=== PATIENT | male | born 1965 | race Hispanic/Latino ===

== ENCOUNTER 2019-09-29 20:38 | Emergency (ER) | payer OTHER ==
[2019-09-29 22:03] LABS: Basophils # (Auto) 0.1 K/mm3 (0.0-0.1); Basophils % (Auto) 1.5 % (0.0-1.8); Eosinophils % (Auto) 0.7 % (0.0-4.3); Hematocrit 40.8 % (35.5-45.6); Hemoglobin 14.5 gm/dl (11.8-15.2); Lymphocytes # (Auto) 1.3 K/mm3 (1.2-5.4); Lymphocytes % (Auto) 31.3 % (13.4-35.0); Mean Corpuscular HGB Conc 36 % (32-34); Mean Corpuscular Volume 91 fl (84-94); Monocytes # (Auto) 0.5 K/mm3 (0.0-0.8); Monocytes % (Auto) 13.1 % (0.0-7.3); Platelet Count 166 K/mm3 (140-440); Red Blood Count 4.47 M/mm3 (3.65-5.03); Red Cell Distribution Width 14.5 % (13.2-15.2)
[2019-09-29] MEDS ORDERED: LORazepam 1 MG TAB PO ONE (22:18)
[2019-09-29] MEDS ORDERED: SODIUM CHLORIDE 0.9% 1000 ML 1,000 ML IV ONE (22:18)
[2019-09-29 22:20] LABS: BUN/Creatinine Ratio 12; Blood Urea Nitrogen 7 mg/dL (9-20); Calcium 8.7 mg/dL (8.4-10.2); Hemolysis Index 2
--- NOTE | 2019-09-29 22:20 | Emergency Department Report ---
ED Psych HPI - General Chief Complaint: Medical Clearance Stated Complaint: MEDICAL CLEARANCE/DETOX Time Seen by Provider: 09/29/19 22:08 Source: patient Mode of arrival: Ambulatory - History of Present Illness Initial Comments: Patient is a 54-year-old male who is presenting with need for medical clearance for detox center. Patient has been accompanied here by a staff from [facility] with need for medical clearance. Patient states his last drink was last night and he had 2 bottles of wine. Patient drinks between 3 or 4 bottles of wine daily. Patient states that he's never had withdrawal seizures. Patient does have a tremor at baseline and he states is present when he's drinks and also when he is not drinking. Patient denies nausea vomiting diarrhea h eadache cough cold congestion fevers or chills at this time. - Related Data Previous Rx's Medication Instructions Recorded Last Taken Type LORazepam [Ativan] 1 mg PO TID PRN #20 tablet 01/27/17 Unknown Rx Allergies Allergy/AdvReac Type Severity Reaction Status Date / Time No Known Allergies Allergy Verified 01/26/17 22:13 ED Review of Systems ROS: Stated complaint: MEDICAL CLEARANCE/DETOX Other details as noted in HPI Comment: All other systems reviewed and negative ED Past Medical Hx - Past Medical History Previous Medical History?: Yes Hx Liver Disease: Yes Hx Seizures: Yes Additional medical history: etoh - Surgical History Past Surgical History?: No - Social History Smoking Status: Never Smoker Substance Use Type: None - Medications Home Medications: Home Medications Medication Instructions Recorded Confirmed Last Taken Type LORazepam [Ativan] 1 mg PO TID PRN #20 tablet 01/27/17 Unknown Rx ED Physical Exam - General Limitations: No Limitations General appearance: alert, in no apparent distress, appears intoxicated - Head Head exam: Present: atraumatic, normocephalic - Eye Eye exam: Present: normal appearance, PERRL, EOMI - ENT ENT exam: Present: mucous membranes moist - Neck Neck exam: Present: normal inspection - Respiratory Respiratory exam: Present: normal lung sounds bilaterally. Absent: respiratory distress, wheezes, rales, rhonchi, stridor, chest wall tenderness - Cardiovascular Cardiovascular Exam: Present: normal rhythm, tachycardia. Absent: systolic murmur, diastolic murmur, rubs, gallop - GI/Abdominal GI/Abdominal exam: Present: soft, normal bowel sounds. Absent: distended, tenderness, guarding, rebound - Rectal Rectal exam: Present: deferred - Extremities Exam Extremities exam: Present: normal inspection - Back Exam Back exam: Present: normal inspection - Neurological Exam Neurological exam: Present: alert, oriented X3 - Psychiatric Psychiatric exam: Present: normal affect, normal mood - Skin Skin exam: Present: warm, dry, intact, normal color. Absent: rash ED Course Vital Signs 09/29/19 20:45 Temperature 98.3 F Pulse Rate 115 H Respiratory 18 Rate Blood Pressure 155/103 O2 Sat by Pulse 94 Oximetry ED Medical Decision Making - Lab Data Result diagrams: 09/29/19 21:49 09/29/19 21:49 Lab Results 09/29/19 09/29/19 09/29/19 Range/Units 21:25 21:25 21:49 WBC (4.5-11.0) K/mm3 RBC (3.65-5.03) M/mm3 Hgb (11.8-15.2) gm/dl Hct (35.5-45.6) % MCV (84-94) fl MCH (28-32) pg MCHC (32-34) % RDW (13.2-15.2) % Plt Count (140-440) K/mm3 Lymph % (Auto) (13.4-35.0) % [place] % (Auto) (0.0-7.3) % Eos % (Auto) (0.0-4.3) % Baso % (Auto) (0.0-1.8) % Lymph # (1.2-5.4) K/mm3 [place] # (0.0-0.8) K/mm3 Eos # (0.0-0.4) K/mm3 Baso # (0.0-0.1) K/mm3 Seg Neutrophils % (40.0-70.0) % Seg Neutrophils # (1.8-7.7) K/mm3 Sodium (137-145) mmol/L Potassium (3.6-5.0) mmol/L Chloride (98-107) mmol/L Carbon Dioxide (22-30) mmol/L Anion Gap mmol/L BUN (9-20) mg/dL Creatinine (0.8-1.5) mg/dL Estimated GFR ml/min BUN/Creatinine Ratio % Glucose (75-100) mg/dL Calcium (8.4-10.2) mg/dL Urine Color Yellow (Yellow) Urine Turbidity Clear (Clear) Urine pH 6.0 (5.0-7.0) Ur Specific [place] 1.012 (1.003-1.030) Urine Protein 30 mg/dl (Negative) mg/dL Urine Glucose (UA) Neg (Negative) mg/dL Urine Ketones Neg (Negative) mg/dL Urine Blood Neg (Negative) Urine Nitrite Neg (Negative) Urine Bilirubin Neg (Negative) Urine Urobilinogen < 2.0 (<2.0) mg/dL Ur Leukocyte Esterase Neg (Negative) Urine WBC (Auto) < 1.0 (0.0-6.0) /HPF Urine RBC (Auto) 2.0 (0.0-6.0) /HPF Urine Mucus Few /HPF Salicylates < 0.3 L (2.8-20.0) mg/dL Urine Opiates Screen Presumptive negative Urine Methadone Screen Presumptive negative Acetaminophen (10.0-30.0) ug/mL Ur Barbiturates Screen Presumptive negative Ur Phencyclidine Scrn Presumptive negative Ur Amphetamines Screen Presumptive negative U Benzodiazepines Scrn Presumptive negative Urine Cocaine Screen Presumptive negative U Marijuana (THC) Screen Presumptive negative Plasma/Serum Alcohol (0-0.07) % 09/29/19 09/29/19 09/29/19 Range/Units 21:49 21:49 21:49 WBC (4.5-11.0) K/mm3 RBC (3.65-5.03) M/mm3 Hgb (11.8-15.2) gm/dl Hct (35.5-45.6) % MCV (84-94) fl MCH (28-32) pg MCHC (32-34) % RDW (13.2-15.2) % Plt Count (140-440) K/mm3 Lymph % (Auto) (13.4-35.0) % [place] % (Auto) (0.0-7.3) % Eos % (Auto) (0.0-4.3) % Baso % (Auto) (0.0-1.8) % Lymph # (1.2-5.4) K/mm3 [place] # (0.0-0.8) K/mm3 Eos # (0.0-0.4) K/mm3 Baso # (0.0-0.1) K/mm3 Seg Neutrophils % (40.0-70.0) % Seg Neutrophils # (1.8-7.7) K/mm3 Sodium 142 (137-145) mmol/L Potassium 4.4 (3.6-5.0) mmol/L Chloride 101.0 (98-107) mmol/L Carbon Dioxide 25 (22-30) mmol/L Anion Gap 20 mmol/L BUN 7 L (9-20) mg/dL Creatinine 0.6 L (0.8-1.5) mg/dL Estimated GFR > 60 ml/min BUN/Creatinine Ratio 12 % Glucose 123 H (75-100) mg/dL Calcium 8.7 (8.4-10.2) mg/dL Urine Color (Yellow) Urine Turbidity (Clear) Urine pH (5.0-7.0) Ur Specific [place] (1.003-1.030) Urine Protein (Negative) mg/dL Urine Glucose (UA) (Negative) mg/dL Urine Ketones (Negative) mg/dL Urine Blood (Negative) Urine Nitrite (Negative) Urine Bilirubin (Negative) Urine Urobilinogen (<2.0) mg/dL Ur Leukocyte Esterase (Negative) Urine WBC (Auto) (0.0-6.0) /HPF Urine RBC (Auto) (0.0-6.0) /HPF Urine Mucus /HPF Salicylates (2.8-20.0) mg/dL Urine Opiates Screen Urine Methadone Screen Acetaminophen < 5.0 L (10.0-30.0) ug/mL Ur Barbiturates Screen Ur Phencyclidine Scrn Ur Amphetamines Screen U Benzodiazepines Scrn Urine Cocaine Screen U Marijuana (THC) Screen Plasma/Serum Alcohol 0.32 H (0-0.07) % 09/29/19 Range/Units 21:49 WBC 4.1 L (4.5-11.0) K/mm3 RBC 4.47 (3.65-5.03) M/mm3 Hgb 14.5 (11.8-15.2) gm/dl Hct 40.8 (35.5-45.6) % MCV 91 (84-94) fl MCH 33 H (28-32) pg MCHC 36 H (32-34) % RDW 14.5 (13.2-15.2) % Plt Count 166 (140-440) K/mm3 Lymph % (Auto) 31.3 (13.4-35.0) % [place] % (Auto) 13.1 H (0.0-7.3) % Eos % (Auto) 0.7 (0.0-4.3) % Baso % (Auto) 1.5 (0.0-1.8) % Lymph # 1.3 (1.2-5.4) K/mm3 [place] # 0.5 (0.0-0.8) K/mm3 Eos # 0.0 (0.0-0.4) K/mm3 Baso # 0.1 (0.0-0.1) K/mm3 Seg Neutrophils % 53.4 (40.0-70.0) % Seg Neutrophils # 2.2 (1.8-7.7) K/mm3 Sodium (137-145) mmol/L Potassium (3.6-5.0) mmol/L Chloride (98-107) mmol/L Carbon Dioxide (22-30) mmol/L Anion Gap mmol/L BUN (9-20) mg/dL Creatinine (0.8-1.5) mg/dL Estimated GFR ml/min BUN/Creatinine Ratio % Glucose (75-100) mg/dL Calcium (8.4-10.2) mg/dL Urine Color (Yellow) Urine Turbidity (Clear) Urine pH (5.0-7.0) Ur Specific [place] (1.003-1.030) Urine Protein (Negative) mg/dL Urine Glucose (UA) (Negative) mg/dL Urine Ketones (Negative) mg/dL Urine Blood (Negative) Urine Nitrite (Negative) Urine Bilirubin (Negative) Urine Urobilinogen (<2.0) mg/dL Ur Leukocyte Esterase (Negative) Urine WBC (Auto) (0.0-6.0) /HPF Urine RBC (Auto) (0.0-6.0) /HPF Urine Mucus /HPF Salicylates (2.8-20.0) mg/dL Urine Opiates Screen Urine Methadone Screen Acetaminophen (10.0-30.0) ug/mL Ur Barbiturates Screen Ur Phencyclidine Scrn Ur Amphetamines Screen U Benzodiazepines Scrn Urine Cocaine Screen U Marijuana (THC) Screen Plasma/Serum Alcohol (0-0.07) % - Medical Decision Making Patient's laboratory studies are not consistent with having his last drink being greater than 24 hours ago. Patient is still intoxicated at this time. The rest of the patient's laboratory studies are within normal limits he's been medically cleared for alcohol detox. Critical care attestation.: If time is entered above; I have spent that time in minutes in the direct care of this critically ill patient, excluding procedure time. ED Disposition Clinical Impression: Alcohol intoxication Qualifiers: Complication of substance-induced condition: uncomplicated Qualified Code(s): F10.920 - Alcohol use, unspecified with intoxication, uncomplicated Disposition: DC/TX-65 PSY HOSP/PSY UNIT Is pt being admited?: No Does the pt Need Aspirin: No Condition: Stable Additional Instructions: You've been medically cleared for your detox treatment program at this time Time of Disposition: 23:08
[2019-09-29 22:45] LABS: Bilirubin,Urine NEG (Negative); Blood,Urine NEG (Negative); Color,Urine Yellow (Yellow); Mucus,Urine FEW /HPF; Urobilinogen,Urine < 2.0 mg/dL (<2.0); WBC,Urine < 1.0 /HPF (0.0-6.0)
[2019-09-29 23:06] LABS: Amphetamine Screen,Urine PRESUMPTIVE NEGATIVE; Benzodiazepines Screen,Urine PRESUMPTIVE NEGATIVE; Cannabinoid Screen,Urine PRESUMPTIVE NEGATIVE; Cocaine Screen,Urine PRESUMPTIVE NEGATIVE; Methadone Screen,Urine PRESUMPTIVE NEGATIVE; Opiate Screen,Urine PRESUMPTIVE NEGATIVE
[2019-09-30 02:18] VITALS: BP 142/96
== END 2019-09-30 01:54 ==
LOC: ED 20:38
DX: F10.129 Alcohol abuse with intoxication, unspecified (principal); R56.9 Unspecified convulsions
CPT/HCPCS: 36415; 80048; 80307; 81001; 85025; 99284; J7030; 80320; G0480